=== PATIENT | female | born 1940 | race Hispanic/Latino ===

== ENCOUNTER 2017-12-21 23:50 | Emergency (ER) | payer OTHER ==
[~2017-12-21 23:50] MED LIST: ESCI5TAB PO; LEVO75TA4 PO; METO-408 PO
[2017-12-22 00:38] LABS: BASOPHILS % (AUTO) 0.4 % (0.0-5.0); EOSINOPHILS % (AUTO) 0.4 % (0.0-8.0); HEMATOCRIT 37.5 % (36-48); LYMPHOCYTES % (AUTO) 28.2 % (21.0-51.0); MEAN CORPUSCULAR HGB CONC 34.2 g/dL (32.0-36.0); MEAN CORPUSCULAR VOLUME 99.6 fL (79-99); MONOCYTES % (AUTO) 7.5 % (3.0-13.0); NEUTROPHILS % (AUTO) 63.5 % (40.0-77.0); PLATELET COUNT (AUTO) 241 K/uL (130-400); RED BLOOD CELL COUNT(AUTO) 3.77 MIL/uL (4.00-5.50); RED CELL DISTRIBUTION WIDTH 13.4 % (11.0-15.5); WHITE BLOOD COUNT (AUTO) 4.9 K/uL (4.8-10.8)
[2017-12-22 00:46] LABS: POTASSIUM 3.7 mmol/L (3.5-5.1)
[2017-12-22 00:48] LABS: APPEARANCE,URINE CLEAR (CLEAR); BILIRUBIN,URINE Negative (NEGATIVE); COLOR,URINE Yellow (YELLOW); GLUCOSE, URINE (UA) Negative (NEGATIVE); KETONES,URINE Negative (NEGATIVE); LEUKOCYTE ESTERASE ,URINE Small (NEGATIVE); NITRATE,URINE Negative (NEGATIVE); OCCULT BLOOD,URINE Moderate (NEGATIVE); PH,URINE 6.5 (5.0-8.0); PROTEIN,URINE Negative (NEGATIVE); UROBILINOGEN,URINE 0.2 mg/dL (0.2-1.0)
[2017-12-22 00:50] LABS: INR 0.97 (0.85-1.15); PARTIAL THROMBOPLASTIN TIME 24.6 SEC (26.3-35.5); PROTHROMBIN TIME 10.2 SEC (9.6-11.6)
[2017-12-22 01:00] LABS: ALBUMIN 3.9 g/dL (3.5-5.0); BILIRUBIN,TOTAL 0.2 mg/dL (0.2-1.0); CREATINE KINASE MB 1.1 ng/mL (0.5-3.6); TOTAL PROTEIN, SERUM 8.6 g/dL (6.0-8.3)
[2017-12-22 01:00] LABS: BACTERIA,URINE Few /HPF (None Seen); SQUAMOUS EPITHELIAL CELL,UR 0-2 /HPF (0-2)
[2017-12-22 01:02] LABS: B-TYPE NATRIURETIC PEPTIDE 35 pg/mL (0-100)
[2017-12-22] MEDS ORDERED: METOPROLOL TARTRATE 1 MG/ML 5ML VIAL IV ONE (01:30)
[2017-12-22] MEDS ORDERED: TRAMADOL HCL 50 MG TABLET ONE (02:05)
== END 2017-12-22 02:45 | disposition home or self-care (01) ==
LOC: EDH 23:50
DX: I10 Essential (primary) hypertension (principal); E07.9 Disorder of thyroid, unspecified; R79.1 Abnormal coagulation profile
CPT/HCPCS: 36415; 70450; 71045; 80053; 81001; 82550; 82553; 83880; 84484; 85025; 85610; 85730; 93005; 96374; 99285; J3490